=== PATIENT | female | born 1985 | race Caucasian/White ===

== ENCOUNTER 2022-07-07 17:38 | Inpatient (IN) ==
[2022-07-07 18:09] LABS: ABS Basophils 0.1 10^3/ul (0-0.2); ABS Eosinophils 0.2 10^3/ul (0-0.6); ABS Lymphocytes 1.9 10^3/ul (1.0-4.8); ABS Monocytes 1.4 10^3/ul (0-0.8); ABS Neutrophils 13.6 10^3/ul (1.5-7.7); Eosinophil % 1.3 %; Hematocrit 42 % (35-47); Hemoglobin 13.8 g/dL (12.0-16.0); Mean Corpuscular HGB Conc 33 g/dL (31-36); Mean Corpuscular Hemoglobin 26 pg (27-31); Mean Corpuscular Volume 80 fL (80-97); Mean Platelet Volume 7.9 fL (7.4-10.4); Nucleated Red Blood Cells % 0.1; Platelet Count 438 10^3/uL (150-450); Red Blood Count 5.27 10^6 /uL (3.70-4.87); Red Cell Distribution Width 16 % (10-15); White Blood Count 17.2 10^3/uL (3.5-10.8)
[2022-07-07 18:15] LABS: INR 1.1 (0.89-1.11)
[2022-07-07 18:44] LABS: Albumin 4.3 g/dL (3.2-5.2); Albumin/Globulin Ratio 1.2 (1-3); Calcium 9.7 mg/dL (8.6-10.3); Globulin 3.5 g/dL (2-4); Total Bilirubin 0.5 mg/dL (0.2-1.0); Total Protein 7.8 g/dL (6.4-8.9); eGFR CKD-EPI 118.5 (>60)
[2022-07-07 19:48] LABS: High Sensitivity Troponin 1 Hr 3 pg/mL (<15)
[2022-07-07 19:58] LABS: C Reactive Protein 37.6 mg/L (<8.01)
[2022-07-07] MEDS ORDERED: Iohexol 350 (CONTRAST) 500 ML MDV IV ONE (20:24)
[2022-07-07] MEDS ORDERED: Ondansetron 4 mg VIAL 2 MG/ML 2 ml VIAL IV ONE ×2 (20:39→23:51)
[2022-07-07] MEDS ORDERED: Morphine 4 MG/ML VIAL (1 ml) IV ONE (20:39)
[2022-07-07] MEDS ORDERED: Lactated Ringers 1000 ml BAG 1,000 ML IV ONE (21:24)
[2022-07-07] MEDS ORDERED: Pantoprazole VIAL 40 MG VIAL IV ONE (23:36)
[2022-07-08] MEDS ORDERED: Lactated Ringers 1000 ml BAG 1,000 ML IV ONE (00:49)
[2022-07-08] MEDS ORDERED: HYDROmorphone 1 MG/1 ML SYRINGE IV SLOW PU ONE (01:12)
[2022-07-08 01:57] LABS: Urine Appearance Slightly Cloudy; Urine Bilirubin Negative (Negative); Urine Blood Negative (Negative); Urine Color Yellow; Urine Glucose Negative (Negative); Urine Ketones 3+ (80mg/dL) (Negative); Urine Nitrite Positive (Negative); Urine Protein Trace (Negative); Urine Urobilinogen 0.2 (Negative) (Negative)
[2022-07-08 02:07] LABS: Urine Bacteria 1+ (Absent); Urine Red Blood Cell 3+(>10/hpf) (Absent); Urine Squamous Epithelial Cell Present (Absent); Urine White Blood Cell 3+(>20/hpf) (Absent)
[2022-07-08] MEDS ORDERED: NS 0.9% 1000 ml BAG 1,000 ML IV SCH (02:45)
[2022-07-08] MEDS ORDERED: Piperacillin/Tazobac ADVAN 3.375 GM in NS 0.9% 100 ml BAG 100 ML IV ONE (03:34)
[2022-07-08] MEDS ORDERED: Zosyn per Pharmacy NOTE FOLLOW UP SCH (04:00)
[2022-07-08] MEDS ORDERED: HYDROmorphone 0.5 MG/0.5 ML SYRINGE IV PRN (04:32)
[2022-07-08] MEDS: HYDROmorphone 1 MG/1 ML SYRINGE IV PRN ×5 (05:05→22:19)
[2022-07-08 05:50] LABS: ABS Basophils 0.1 10^3/ul (0-0.2); ABS Eosinophils 0.3 10^3/ul (0-0.6); ABS Lymphocytes 1.8 10^3/ul (1.0-4.8); ABS Monocytes 1.1 10^3/ul (0-0.8); ABS Neutrophils 9.2 10^3/ul (1.5-7.7); Eosinophil % 2.5 %; Hematocrit 37 % (35-47); Hemoglobin 11.8 g/dL (12.0-16.0); Lymphocyte % 14.4 %; Mean Corpuscular HGB Conc 32 g/dL (31-36); Mean Corpuscular Hemoglobin 26 pg (27-31); Mean Corpuscular Volume 82 fL (80-97); Platelet Count 267 10^3/uL (150-450); Red Blood Count 4.48 10^6 /uL (3.70-4.87); Red Cell Distribution Width 16 % (10-15); White Blood Count 12.4 10^3/uL (3.5-10.8)
[2022-07-08] MEDS: Lactated Ringers 1000 ml BAG 1,000 ML IV SCH ×2 (05:51→12:10)
[2022-07-08] MEDS ORDERED: Enoxaparin 40 MG/0.4 ML SYR SUBCUT SCH ×2 (06:00→21:00)
[2022-07-08 06:12] LABS: Calcium 8.6 mg/dL (8.6-10.3); Magnesium 1.9 mg/dL (1.9-2.7); Phosphorus 3.1 mg/dL (2.5-5.0); Potassium 3.7 mmol/L (3.5-5.0); eGFR CKD-EPI 115.8 (>60)
[2022-07-08] MEDS: ZOSYN 3.375 GM Q8H per EXTENDED INFUSION IV SCH ×2 (08:58→17:13)
[2022-07-08] MEDS: Ondansetron 4 mg VIAL 2 MG/ML 2 ml VIAL IV PRN (09:05)
[2022-07-08 10:47] LABS: HCG Pregnancy 5.24 mIU/mL
[2022-07-08] MEDS: Pantoprazole VIAL 40 MG VIAL IV SCH ×2 (12:10→20:33)
[2022-07-08] MEDS ORDERED: Magnesium Sulfate IV 1GM/100ML 1 GM/100 ML BAG IV ONE (13:05)
[2022-07-08] MEDS ORDERED: fentaNYL 100 mcg/2 ml 50 MCG/ML VIAL ONE (14:31)
[2022-07-08] MEDS ORDERED: Midazolam 10 mg/10 ml VIAL 1 mg/ml 10 ml VIAL (10 mg) ONE (14:31)
[2022-07-08 14:36] LABS: Albumin 3.6 g/dL (3.2-5.2); Albumin/Globulin Ratio 1.3 (1-3); Direct Bilirubin 0.2 mg/dL (0.03-0.18); Globulin 2.8 g/dL (2-4); Indirect Bilirubin 0.5 mg/dL (0.3-1.0); Total Bilirubin 0.7 mg/dL (0.2-1.0); Total Protein 6.4 g/dL (6.4-8.9)
[2022-07-09] MEDS: Lactated Ringers 1000 ml BAG 1,000 ML IV SCH (02:06)
[2022-07-09] MEDS: HYDROmorphone 1 MG/1 ML SYRINGE IV PRN ×6 (02:15→23:44)
[2022-07-09] MEDS: ZOSYN 3.375 GM Q8H per EXTENDED INFUSION IV SCH ×3 (02:15→18:02)
[2022-07-09 04:53] LABS: Hematocrit 34 % (35-47); Hemoglobin 10.5 g/dL (12.0-16.0); Mean Corpuscular HGB Conc 31 g/dL (31-36); Mean Corpuscular Hemoglobin 26 pg (27-31); Mean Corpuscular Volume 82 fL (80-97); Mean Platelet Volume 7.9 fL (7.4-10.4); Platelet Count 259 10^3/uL (150-450); Red Blood Count 4.08 10^6 /uL (3.70-4.87); Red Cell Distribution Width 16 % (10-15)
[2022-07-09 08:06] LABS: Calcium 8.6 mg/dL (8.6-10.3); Potassium 3.8 mmol/L (3.5-5.0)
[2022-07-09 08:11] LABS: eGFR CKD-EPI 116.7 (>60)
[2022-07-09] MEDS: Pantoprazole VIAL 40 MG VIAL IV SCH ×2 (08:15→20:52)
[2022-07-09] MEDS ORDERED: Magnesium Sulfate 2 gm BAG 2 GM/50 ML BAG IVPB ONE (08:39)
[2022-07-09] MEDS: Ondansetron 4 mg VIAL 2 MG/ML 2 ml VIAL IV PRN (16:02)
[2022-07-09] MEDS ORDERED: fentaNYL PATCH 12 MCG/HR 1 PATCH TRANSDERM SCH (17:00)
[2022-07-09] MEDS: fentaNYL Patch Check Q Shift NOTE FOLLOW UP SCH (19:08)
[2022-07-09] MEDS: Triamcinolone 0.5% OINT 1 TUBE TOPICAL SCH (20:52)
[2022-07-10] MEDS: ZOSYN 3.375 GM Q8H per EXTENDED INFUSION IV SCH ×2 (01:29→09:09)
[2022-07-10] MEDS: HYDROmorphone 1 MG/1 ML SYRINGE IV PRN ×4 (04:12→18:32)
[2022-07-10 06:51] LABS: ABS Eosinophils 0.2 10^3/ul (0-0.6); ABS Lymphocytes 1.1 10^3/ul (1.0-4.8); ABS Monocytes 0.7 10^3/ul (0-0.8); ABS Neutrophils 8.3 10^3/ul (1.5-7.7); Eosinophil % 1.6 %; Hematocrit 36 % (35-47); Hemoglobin 12.2 g/dL (12.0-16.0); Lymphocyte % 10.3 %; Mean Corpuscular HGB Conc 34 g/dL (31-36); Mean Corpuscular Hemoglobin 28 pg (27-31); Mean Corpuscular Volume 82 fL (80-97); Mean Platelet Volume 8.9 fL (7.4-10.4); Platelet Count 286 10^3/uL (150-450); Red Blood Count 4.32 10^6 /uL (3.70-4.87); Red Cell Distribution Width 16 % (10-15); White Blood Count 10.3 10^3/uL (3.5-10.8)
[2022-07-10] MEDS: fentaNYL Patch Check Q Shift NOTE FOLLOW UP SCH ×2 (07:12→18:36)
[2022-07-10 07:15] LABS: Calcium 8.7 mg/dL (8.6-10.3); Phosphorus 2.9 mg/dL (2.5-5.0); Potassium 3.8 mmol/L (3.5-5.0)
[2022-07-10] MEDS: Pantoprazole VIAL 40 MG VIAL IV SCH (09:14)
[2022-07-10] MEDS: Ondansetron 4 mg VIAL 2 MG/ML 2 ml VIAL IV PRN (09:19)
[2022-07-10] MEDS: Triamcinolone 0.5% OINT 1 TUBE TOPICAL SCH (09:20)
[2022-07-10] MEDS: Lactated Ringers 1000 ml BAG 1,000 ML IV SCH (14:15)
[2022-07-10 16:31] LABS: Rapid COVID-19 Molecular Undetected (Undetected)
[2022-07-10 19:28] VITALS: BP 132/83
== END 2022-07-10 19:30 | disposition short-term general hospital (02) | DRG 282 ==
LOC: ED 17:38 → SUATTDRO 07-08 02:35 → EDHOLD 07-08 02:35 → ICU 07-08 04:31 → MED 07-09 10:06
PROVIDERS: ADMIT Internal Medicine; ATTEND Internal Medicine